=== PATIENT | female | born 1955 | race Hispanic/Latino ===

== ENCOUNTER → 2020-08-15 | Outpatient (CLI) | payer MEDICARE ==
--- NOTE | 2020-08-15 15:05 | Diagnostic Imaging Report ---
TECHNIQUE: Magnetic resonance imaging of the LEFT SHOULDER was performed WITHOUT injected contrast. COMPARISON: None available. HISTORY: Left shoulder pain, left shoulder rotator cuff FINDINGS: MUSCLES AND TENDONS: Rotator Cuff: Tendons: Supraspinatus: Tendinosis with high-grade interstitial tearing and suspected small focal full-thickness component. Infraspinatus: Tendinosis with low-grade interstitial tearing. Teres Minor: Intact Subscapularis: Tendinosis without discrete tear. Muscles: No focal muscle atrophy. Biceps Tendon: The long head of the biceps tendon is intact and within the intertubercular groove. Tendinosis along the intra-articular portion of the biceps tendon without discrete tear. GLENOHUMERAL JOINT: Glenoid Labrum: Superior labral tear with anterior and posterior extension. Articular Cartilage: No focal defect. AC JOINT AND ACROMION: Mild hypertrophic degenerative changes of the acromioclavicular joint with small subacromial osseous spurring. Small amount of fluid in the subacromial/subdeltoid bursa. Type II acromion. BONE: No specific evidence of a focal or infiltrative bone marrow replacing abnormality. No acute fracture. SOFT TISSUES: Otherwise, the soft tissues appear unremarkable. IMPRESSION: 1. Rotator cuff tendinosis with interstitial tearing of the supraspinatus and infraspinatus tendons. Additional suspected small focal full-thickness component of tear within the supraspinatus tendon. 2. Tendinosis along the intra-articular portion of the biceps tendon without discrete tear. 3. SLAP tear of the labrum. 4. Small amount of fluid in the subacromial/subdeltoid bursa, may represent bursitis or related to full-thickness component of rotator cuff tear. Signed by: Dr. Navarro Downs M.D. on 08/15/2020 3:02 PM
== END ==
LOC: MRI 12:38
PROVIDERS: ATTEND Specialist
DX: M75.102 Unspecified rotator cuff tear or rupture of left shoulder, not specified as traumatic (principal)

== ENCOUNTER → 2020-08-31 | Day surgery (SDC) | payer MEDICARE, OTHER ==
[2020-08-26 11:27] LABS: BASOPHILS % 0.7 % (0.0-1.0); EOSINOPHILS # (AUTO) 0.1 (0.0-0.4); EOSINOPHILS % 2.2 % (0.0-6.0); HEMATOCRIT 35.3 % (34.2-44.1); HEMOGLOBIN 11.7 g/dL (12.0-16.0); LYMPHOCYTES # (AUTO) 1.8 (1.0-3.2); LYMPHOCYTES % 32.9 % (18.0-39.1); MEAN CORPUSCULAR HEMOGLOBIN 32.1 pg (28-32); MEAN CORPUSCULAR HGB CONC 33.1 g/dL (31-35); MEAN CORPUSCULAR VOLUME 96.7 fL (81-99); MONOCYTES # (AUTO) 0.5 (0.2-0.8); PLATELET COUNT 227 x10e3/uL (140-360); RED BLOOD COUNT 3.65 x10e6/uL (3.6-5.1)
[2020-08-26 11:48] LABS: ANION GAP 12.7 mmol/L (8-16); CALCIUM 9.4 mg/dL (8.4-10.2); CREATININE, SERUM 1.23 mg/dL (0.57-1.11); POTASSIUM 4.7 mmol/L (3.5-5.1)
--- NOTE | 2020-08-26 12:26 | Diagnostic Imaging Report ---
EXAMINATION: CHEST 2 VIEWS INDICATION: Preop for shoulder surgery ^[id number] ^[id number] ^PRE-OP COMPARISON: None FINDINGS: TUBES and LINES: None. LUNGS: Lungs are well inflated. Lungs are clear. There is no evidence of pneumonia or pulmonary edema. PLEURA: No pleural effusion or pneumothorax. HEART AND MEDIASTINUM: The cardiomediastinal silhouette is unremarkable. BONES AND SOFT TISSUES: No acute osseous lesion. Soft tissues are unremarkable. Surgical clips in the right upper abdomen. UPPER ABDOMEN: No free air under the diaphragm. IMPRESSION: No acute thoracic abnormality. Signed by: Dr. Diony Parker M.D. on 08/26/2020 12:23 PM
[~2020-08-31] MED LIST: ACETAMINOPHEN 1000 MG/100 ML 100 ML IV ONE; ASPIRIN81 MG PO; CEFAZOLIN SOD 1 GM/NS 50ML 100 ML IV ONE; DEXAMETHASONE SOD PHOS INJ 4 MG/ML VIAL ONE; EPINEPHRINE 1 MG/ML 30ML VIAL ONE; FENTANYL CITRATE/PF 100MCG/2 ML INJ ONE; LEVEMIR FL100 UNIT/1 SC; LIDOCAINE 2%/ EPINEPHRINE 20ML MDV ONE; LIDOCAINE HCL 2% LOCAL INJ 5 ML SDV VIAL INJ ONE; METOCLOPRAMIDE HCL 10 MG/2ML VIAL ONE; MIDAZOLAM HCL 2 MG/2 ML VIAL ONE; NOVOLOG100 UNIT/1 SC; ONDANSETRON HCL INJ 2MG/ML 2ML 2 MG/ML VIAL ONE; PHENYLEPHRINE HCL 1% 10 MG/ML VIAL ONE; PROPOFOL IV EMULSION 10 MG/ML 20 ML VIAL ONE; ROCURONIUM BROMIDE 10 MG/ML 5ML VIAL IV ONE; ROPIVACAINE 0.5% 5 MG/ML 30 ML SDV ONE; SEVOFLURANE INHAL SOLN 250 ML PEN BTL ONE; VASOTEC5 MG PO; ZETIA10 MG PO
[2020-08-31 13:45] VITALS: BP 128/59
--- NOTE | 2020-09-06 03:55 | Operative Report ---
DATE OF PROCEDURE: 08/31/2020 SURGEON: Santosh Brand MD PREOPERATIVE DIAGNOSES: 1. Left shoulder rotator cuff tear. 2. Left shoulder acromioclavicular joint arthrosis. POSTOPERATIVE DIAGNOSES: 1. Left shoulder rotator cuff tear. 2. Left shoulder synovitis. 3. Left shoulder near-complete biceps tendon tear. 4. Left shoulder rotator cuff tear. 5. Left shoulder acromioclavicular joint arthritis. OPERATION PROCEDURE PERFORMED: The patient underwent a left shoulder examination under anesthesia, left shoulder arthroscopy, arthroscopic debridement of synovitis, arthroscopic debridement of the labrum, arthroscopic biceps tenolysis, and arthroscopic rotator cuff reconstruction, and arthroscopic subacromial decompression and acromioplasty, and arthroscopic distal clavicle resection. 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 ANESTHESIA: General endotracheal intubation anesthesia. IV FLUIDS: Per the anesthesia record. BLOOD LOSS: Minimal. COMPLICATIONS: None. BRIEF DESCRIPTION OF THE PATIENT'S OPERATIVE PROCEDURE: Ms. Jennings was taken to the operating room and placed in a supine position on the operating table. Following induction of general anesthesia as well as endotracheal intubation, the patient's left upper extremity was examined under anesthesia. She was found to have a normal-appearing shoulder. She had full passive range of motion of the shoulder joint without evidence of instability. The patient's lower extremity was prepped and draped in the standard surgical fashion. The case was begun by creating anterior and posterolateral portals. The scope was placed in the shoulder joint atraumatically. Examination of the glenohumeral articulation demonstrated no significant evidence of chondromalacia. There was moderate synovitis within the shoulder joint. There was moderate fraying of the labrum. A probe was placed in the shoulder joint and the biceps tendon was found to have a near-complete tearing of the biceps. There was also a full-thickness rotator cuff tear. The shaver was placed in the shoulder joint and the synovitis was debrided. The labral tearing was also debrided at this time. The biceps tendon was debrided. A thorough examination of the tendon demonstrated greater than 80% of the tendon was torn. The decision was made intraoperatively to provide the patient a biceps tenolysis. An biter was used to release the biceps tendon from its insertion into the superior rim of the labrum. A shaver was then used to debride the remaining soft tissue. The shaver was then used to debride the torn rotator cuff. The insertion site for the rotator cuff was debrided to a bleeding bony bed. The shoulder was then inflated with sterile normal saline. The scope was placed in subacromial space and significant bursal inflammation was encountered. A lateral portal was created with an outside-in technique. A shaver was placed in subacromial space and bursectomy was performed. The rotator cuff tear was easily identified and the insertion site was further debrided. A single suture anchor was inserted into the tuberosity of the humerus and the suture arms from that anchor were then woven through the rotator cuff tissue, again to the rotator cuff tissue into its normal insertion site. This resulted in complete reapproximation of the rotator cuff into the greater tuberosity of the humerus. The coracoacromial ligament was then resected. An aggressive acromioplasty was performed. The patient's arm was in place for range of motion and no impingement was visualized. Attention was then turned to the AC joint arthritis. The shaver was used to isolate the acromioclavicular joint. The shaver was then transferred to the anterior portal and a 1 cm section of the distal clavicle was resected. The scope was then used to visualize the resection and found to be appropriate. The shoulder was deflated with sterile normal saline. The portal sites were closed. Sterile dressings were applied and the patient was provided a shoulder immobilizer, awakened, and taken to the postanesthesia care in stable condition. MD STEFFI Duckworth/LENIN /[id number]
== END | disposition home or self-care (01) ==
LOC: OR 07:15
PROVIDERS: ATTEND Specialist
DX: M75.122 Complete rotator cuff tear or rupture of left shoulder, not specified as traumatic (principal); S43.432A Superior glenoid labrum lesion of left shoulder, initial encounter; M19.012 Primary osteoarthritis, left shoulder; S46.212A Strain of muscle, fascia and tendon of other parts of biceps, left arm, initial encounter; M65.812 Other synovitis and tenosynovitis, left shoulder; E11.9 Type 2 diabetes mellitus without complications; I10 Essential (primary) hypertension; E78.5 Hyperlipidemia, unspecified; N28.9 Disorder of kidney and ureter, unspecified; X58.XXXA Exposure to other specified factors, initial encounter; Z01.810 Encounter for preprocedural cardiovascular examination; Z01.812 Encounter for preprocedural laboratory examination; Z01.818 Encounter for other preprocedural examination; Z11.59 Encounter for screening for other viral diseases; Z79.4 Long term (current) use of insulin; Z79.82 Long term (current) use of aspirin; Z68.35 Body mass index [BMI] 35.0-35.9, adult; Z99.2 Dependence on renal dialysis; Z87.891 Personal history of nicotine dependence
CPT/HCPCS: 29824; 29826; 29827; 36415 ×2; 71046; 80048; 82948; 85025; 93005; J0131; J0690; J1100; J2001 ×2; J2250; J2370; J2405; J2704; J2765; J2795; J3010; U0002

== ENCOUNTER 2020-11-30 14:27 | Outpatient (RCR) | payer MEDICARE ==
[~2020-11-30 14:27] MED LIST changes: -ACETAMINOPHEN 1000 MG/100 ML 100 ML IV ONE; -CEFAZOLIN SOD 1 GM/NS 50ML 100 ML IV ONE; -DEXAMETHASONE SOD PHOS INJ 4 MG/ML VIAL ONE; -EPINEPHRINE 1 MG/ML 30ML VIAL ONE; -FENTANYL CITRATE/PF 100MCG/2 ML INJ ONE; -LIDOCAINE 2%/ EPINEPHRINE 20ML MDV ONE; -LIDOCAINE HCL 2% LOCAL INJ 5 ML SDV VIAL INJ ONE; -METOCLOPRAMIDE HCL 10 MG/2ML VIAL ONE; -MIDAZOLAM HCL 2 MG/2 ML VIAL ONE; -ONDANSETRON HCL INJ 2MG/ML 2ML 2 MG/ML VIAL ONE; -PHENYLEPHRINE HCL 1% 10 MG/ML VIAL ONE; -PROPOFOL IV EMULSION 10 MG/ML 20 ML VIAL ONE; -ROCURONIUM BROMIDE 10 MG/ML 5ML VIAL IV ONE; -ROPIVACAINE 0.5% 5 MG/ML 30 ML SDV ONE; -SEVOFLURANE INHAL SOLN 250 ML PEN BTL ONE
== END 2020-12-01 ==
LOC: OT 14:27
PROVIDERS: ATTEND Specialist
DX: M75.102 Unspecified rotator cuff tear or rupture of left shoulder, not specified as traumatic (principal)

== ENCOUNTER 2020-12-30 10:52 | Outpatient (RCR) | payer MEDICARE | END 2021-01-01 | LOC: OT 10:52 | PROVIDERS: ATTEND Specialist | DX: S46.002D Unspecified injury of muscle(s) and tendon(s) of the rotator cuff of left shoulder, subsequent encounter (principal); M25.512 Pain in left shoulder; M25.612 Stiffness of left shoulder, not elsewhere classified; R53.1 Weakness ==

== ENCOUNTER 2021-01-27 13:00 | Outpatient (RCR) | payer MEDICARE | END 2021-01-29 | LOC: OT 13:00 | PROVIDERS: ATTEND Specialist | DX: S43.422A Sprain of left rotator cuff capsule, initial encounter (principal) ==

== ENCOUNTER → 2021-07-07 | Outpatient (CLI) | payer MEDICARE | LOC: RAD 12:06 | PROVIDERS: ATTEND Family Medicine | DX: M79.605 Pain in left leg (principal); R09.89 Other specified symptoms and signs involving the circulatory and respiratory systems | CPT/HCPCS: 93971 ==

== ENCOUNTER → 2021-09-15 | Outpatient (CLI) | payer MEDICARE | LOC: RAD 09:44 | PROVIDERS: ATTEND Family Medicine | DX: M79.662 Pain in left lower leg (principal) | CPT/HCPCS: 93971 ==

== ENCOUNTER → 2024-09-17 | Outpatient (REF) | payer MEDICARE | LOC: DX 13:04 | PROVIDERS: ATTEND Nurse Practitioner Gerontology | DX: N95.9 Unspecified menopausal and perimenopausal disorder (principal) ==

== ENCOUNTER → 2024-10-13 | Outpatient (REF) | payer MEDICARE | LOC: RAD 13:09 | PROVIDERS: ATTEND Internal Medicine | DX: M94.0 Chondrocostal junction syndrome [Tietze] (principal) | CPT/HCPCS: 71101 ==

== ENCOUNTER → 2025-01-08 | Outpatient (REF) | payer MEDICARE | LOC: CARD 09:48 | PROVIDERS: ATTEND Specialist/Technologist, Other Surgical Technologist | DX: E11.22 Type 2 diabetes mellitus with diabetic chronic kidney disease (principal); I73.9 Peripheral vascular disease, unspecified | CPT/HCPCS: 93925 ==

== ENCOUNTER → 2025-02-08 | Outpatient (REF) | payer MEDICARE | LOC: RAD 14:46 | PROVIDERS: ATTEND Family Medicine | DX: M54.6 Pain in thoracic spine (principal) | CPT/HCPCS: 72072 ==

== ENCOUNTER → 2025-06-28 | Outpatient (REF) | payer MEDICARE | LOC: US 14:05 | PROVIDERS: ATTEND Specialist/Technologist, Other Surgical Technologist | DX: M54.50 Low back pain, unspecified (principal) | CPT/HCPCS: 76770; 76857 ==